=== PATIENT | female | born 1985 | race African-American/Black ===

== ENCOUNTER → 2017-01-11 | Outpatient (CLI) | payer BC | LOC: OD 16:47 | PROVIDERS: ATTEND Student in an Organized Health Care Education/Training Program | DX: N97.8 Female infertility of other origin (principal) | CPT/HCPCS: 36415; 83516 ==

== ENCOUNTER 2017-07-05 13:09 | Emergency (ER) | payer BC, MEDICAID ==
--- NOTE | 2017-07-05 14:32 | ER Document Report ---
ED Medical Screen (RME) - General Chief Complaint: Dizziness Stated Complaint: BLOOD PRESSURE ISSUES Time Seen by Provider: 07/05/17 14:30 Notes: Patient presents stating she is having left arm pain dizziness and feeling "spacey". She states this is been going on for several days and her coworkers made her come to the hospital today. She also states she has been having trouble controlling her blood pressure. TRAVEL OUTSIDE OF THE [place] IN LAST 30 DAYS: No - Related Data Allergies/Adverse Reactions: No Known Allergies Allergy (Unverified 07/05/17 13:33) Past Medical History - Social History Chew tobacco use (# tins/day): No Frequency of alcohol use: None Drug Abuse: None Renal/ Medical History: Denies: Hx Peritoneal Dialysis Surgical Hx: Negative Physical Exam - Vital signs Vitals: Temp Pulse Resp BP Pulse Ox 98.8 F 88 16 146/90 H 100 07/05/17 13:33 07/05/17 13:33 07/05/17 13:33 07/05/17 13:33 07/05/17 13:33 Course - Vital Signs Vital signs: Temp Pulse Resp BP Pulse Ox 98.8 F 88 16 146/90 H 100 07/05/17 13:33 07/05/17 13:33 07/05/17 13:33 07/05/17 13:33 07/05/17 13:33
[2017-07-05 15:46] LABS: ABSOLUTE BASOPHILS # (AUTO) 0.1 10^3/uL (0.0-0.2); ABSOLUTE LYMPHOCYTES (AUTO) 2.4 10^3/uL (0.5-4.7); ABSOLUTE MONOCYTES (AUTO) 0.8 10^3/uL (0.1-1.4); ABSOLUTE NEUT (AUTO) 2.3 10^3/uL (1.7-8.2); BASOPHILS % (AUTO) 1.2 % (0-2); EOSINOPHILS % (AUTO) 0.8 % (0-6); HEMOGLOBIN 14.3 g/dL (12.0-15.5); HGB HCT DIFFERENCE -0.1; LYMPHOCYTES % (AUTO) 42.7 % (13-45); MEAN CORPUSCULAR HGB CONC 33.3 g/dL (32.0-36.0); MEAN CORPUSCULAR VOLUME 81 fl (80-97); MONOCYTES % (AUTO) 14.1 % (3-13); RED BLOOD COUNT 5.31 10^6/uL (3.72-5.28); RED CELL DISTRIBUTION WIDTH 13.3 % (11.5-14.0); SEGMENTED NEUTROPHILS % (AUTO) 41.2 % (42-78); WHITE BLOOD COUNT 5.6 10^3/uL (4.0-10.5)
[2017-07-05 15:56] LABS: APPEARANCE,URINE CLOUDY; BILIRUBIN,URINE NEGATIVE (NEGATIVE); GLUCOSE, URINE NEGATIVE (NEGATIVE); KETONES,URINE NEGATIVE (NEGATIVE); LEUKOCYTE ESTERASE,URINE LARGE (NEGATIVE); NITRITE,URINE NEGATIVE (NEGATIVE); PROTEIN,URINE NEGATIVE (NEGATIVE); URINE SPECIFIC GRAVITY 1.009; UROBILINOGEN,URINE NEGATIVE mg/dL (<2.0)
[2017-07-05 16:04] LABS: ALANINE AMINOTRANSFERASE 35 U/L (9-52); ALBUMIN 4.8 g/dL (3.5-5.0); ALKALINE PHOSPHATASE 65 U/L (38-126); ANION GAP 14 (5-19); ASPARTATE AMINO TRANSFERASE 30 U/L (14-36); BILIRUBIN,DIRECT 0.4 mg/dL (0.0-0.4); BILIRUBIN,TOTAL 0.7 mg/dL (0.2-1.3); BLOOD UREA NITROGEN 12 mg/dL (7-20); CALCIUM 10.2 mg/dL (8.4-10.2); CARBON DIOXIDE 27 mmol/L (22-30); CHLORIDE 100 mmol/L (98-107); GLUCOSE 84 mg/dL (75-110); POTASSIUM 4.2 mmol/L (3.6-5.0); SODIUM 140.9 mmol/L (137-145); TOTAL PROTEIN 8.4 g/dL (6.3-8.2)
[2017-07-05] MEDS ORDERED: ACETAMINOPHEN 325 MG TABLET PO ONE (17:10)
[2017-07-05] MEDS ORDERED: SULFAMETHOXAZOLE/TRIMETHOPRIM 800-160 MG TABLET PO ONE (17:10)
--- NOTE | 2017-07-05 17:10 | ER Document Report ---
ED Dizziness/Weakness - General Chief Complaint: Dizziness Stated Complaint: BLOOD PRESSURE ISSUES Time Seen by Provider: 07/05/17 14:30 Mode of Arrival: Ambulatory Information source: Patient Notes: Very pleasant 32-year-old female with no past medical history presents emergency department complaining of some mild vertigo symptoms, lightheadedness , feeling "spacey". She also reports having some tingling with some paresthesia into her left arm. She denies any chest pain or shortness of breath. She works at the [employer] and her blood pressure was checked and was found to be mildly elevated. The symptoms and the first blood pressure check work this past Wednesday. The symptoms have continued. With ongoing borderline hypertension in the symptoms, the patient presents emergency department today. She denies any vomiting or diarrhea. She does report having a mild sense of nausea, queasiness, with the vertigo. Patient does not smoke. She has no known cardiac risk factors. She has some vague history within her family of congestive heart failure but it does not sound as though she has a strong history of ischemic disease. Patient does report she has a headache. This has not been severe. TRAVEL OUTSIDE OF THE [place] IN LAST 30 DAYS: No - Related Data Allergies/Adverse Reactions: No Known Allergies Allergy (Unverified 07/05/17 13:33) Past Medical History - Social History Smoking Status: Never Smoker Chew tobacco use (# tins/day): No Frequency of alcohol use: None Drug Abuse: None Family History: Reviewed & Not Pertinent Patient has suicidal ideation: No Renal/ Medical History: Denies: Hx Peritoneal Dialysis Surgical Hx: Negative Review of Systems - Review of Systems Notes: REVIEW OF SYSTEMS: CONSTITUTIONAL : Denies fever, chills, or sweats. Denies recent illness. EENT: Denies eye, ear, throat, or mouth pain or symptoms. Denies nasal or sinus congestion or discharge. CARDIOVASCULAR: Denies chest pain. Denies palpitations or racing or irregular heart beat. RESPIRATORY: Denies cough, cold, or chest congestion. Denies shortness of breath, difficulty breathing, or wheezing. GASTROINTESTINAL: Denies abdominal pain or distention. Denies nausea, vomiting , or diarrhea. GENITOURINARY: Denies difficulty urinating, painful urination, burning, frequency, blood in urine, or discharge. MUSCULOSKELETAL: Denies back or neck pain or stiffness. Denies joint pain or swelling. SKIN: Denies rash, lesions or sores. LYMPHATIC: Denies swollen, enlarged glands. NEUROLOGICAL: Denies confusion or altered mental status. Denies passing out or loss of consciousness. Patient does complain of mild vertigo with a mild headache. See HPI ALL OTHER SYSTEMS REVIEWED AND NEGATIVE. Physical Exam - Vital signs Vitals: Temp Pulse Resp BP Pulse Ox 98.8 F 88 16 146/90 H 100 07/05/17 13:33 07/05/17 13:33 07/05/17 13:33 07/05/17 13:33 07/05/17 13:33 - Notes Notes: PHYSICAL EXAMINATION: GENERAL: Well-appearing, well-nourished and in no acute distress. HEAD: Atraumatic, normocephalic. ENT: Nares patent, oropharynx clear without exudates. Moist mucous membranes. NECK: Normal range of motion, supple without lymphadenopathy LUNGS: Breath sounds clear to auscultation bilaterally and equal. No wheezes rales or rhonchi. HEART: Regular rate and rhythm without murmurs ABDOMEN: Soft, nontender, nondistended abdomen. No guarding, no rebound. No masses appreciated. Musculoskeletal: Normal range of motion, no pitting or edema. No cyanosis. NEUROLOGICAL: Cranial nerves grossly intact. Normal speech, normal gait. Normal sensory, motor exams Negative pronator drift. Negative Romberg. Good finger to nose coordination. Cranial nerves II through XII are intact. Sensation is intact throughout. Patient is ambulatory with full strength. PSYCH: Normal mood, normal affect. SKIN: Warm, Dry, no rashes or lesions noted. Course - Re-evaluation Re-evalutation: 07/05/17 17:08 Very pleasant 32-year-old female, communicative and in no acute distress. No indication of a neurologic impairment. Her EKG obtained at 1510 shows normal sinus rhythm at a rate of 72 with normal intervals and normal axis. No ST elevation or depression. Her blood tests are unremarkable, including a normal troponin level. Her urinalysis does show mild to moderate signs of urinary tract infection. This may be contributing to her symptoms. We will treat her with a small dose of meclizine, Tylenol, and Bactrim for her urinary tract infection. We will discharge patient home. 07/05/17 17:09 - Vital Signs Vital signs: Temp Pulse Resp BP Pulse Ox 98.8 F 88 16 146/90 H 100 07/05/17 13:33 07/05/17 13:33 07/05/17 13:33 07/05/17 13:33 07/05/17 13:33 - Laboratory Result Diagrams: 07/05/17 15:30 07/05/17 15:30 Laboratory results interpreted by me: 07/05/17 07/05/17 07/05/17 15:00 15:30 15:30 RBC 5.31 H Seg Neutrophils % 41.2 L Monocytes % 14.1 H Total Protein 8.4 H Urine Blood SMALL H Ur Leukocyte Esterase LARGE H Discharge - Discharge Clinical Impression: Vertigo UTI (urinary tract infection) Qualifiers: Urinary tract infection type: site unspecified Hematuria presence: without hematuria Qualified Code(s): N39.0 - Urinary tract infection, site not specified Condition: Good Disposition: HOME, SELF-CARE Instructions: Trimethoprim-Sulfa ([facility]) Additional Instructions: Your blood tests look good. Your EKG looks good. Your urine does show some signs of urinary tract infection. This may be contributing to the symptoms you have had since Wednesday. Take Bactrim for this urinary tract infection. We have prescribed meclizine for the vertigo. You may also continue to take Tylenol if needed for mild headache. If you have a severe headache, any focal weakness, worsening dizziness, or other urgent concerns, return to the emergency department. Please follow-up with a primary physician. Prescriptions: Meclizine HCl 12.5 mg PO TID PRN #8 tablet PRN Reason: Sulfamethoxazole/Trimethoprim [Bactrim Ds Tablet] 1 each PO BID #10 tablet Referrals: MANNIE ESPARZA MD [ACTIVE STAFF] - Follow up as needed
[2017-07-05 17:58] VITALS: BP 140/90
--- NOTE | 2017-07-05 18:32 | EKG REPORT ---
SEVERITY:- NORMAL ECG - SINUS RHYTHM : Confirmed by: Rico Matt 05-Jul-2017 18:31:21
== END 2017-07-05 17:42 | disposition home or self-care (01) ==
LOC: ER 13:09
DX: N39.0 Urinary tract infection, site not specified (principal); R42 Dizziness and giddiness; R03.0 Elevated blood-pressure reading, without diagnosis of hypertension; R20.0 Anesthesia of skin
CPT/HCPCS: 36415; 80053; 81001; 81025; 84484; 85025; 93005; 93010; 99284